=== PATIENT | female | born 1950 | race Asian ===

== ENCOUNTER 2025-03-15 22:05 | Inpatient (IN) | payer OTHER, SELFPAY ==
[2025-03-15] VITALS (14 sets, daily range): BP systolic 69–152; BP diastolic 41–74; BMI 23.5
[2025-03-15] MEDS: NSS 1000 IV ×2 (17:51→19:49)
[2025-03-15 18:00] LABS: % Basophils 0.8 % (0-2); % Immature Granulocytes 0.2 % (0-0.5); % Lymphocytes 34.7 % (20.5-51.1); % Monocytes 9.3 % (1.7-9.3); Absolute Eosinophils 0.2 10^3/uL (0-0.7); Absolute Lymphocytes 1.8 10^3/uL (1.2-3.4); Absolute Monocytes 0.5 10^3/uL (0.1-0.6); Absolute Neutrophils 2.7 10^3/uL (1.4-6.5); Hematocrit 31.7 % (37.0-47.0); Hemoglobin 10.3 g/dL (12.0-16.0); Mean Corp Hgb Conc. 32.5 g/dL (33.0-37.0); Mean Corpuscular Hgb 27.9 pg (27.0-31.0); Mean Corpuscular Volume 85.9 fL (81.0-99.0); Mean Platelet Volume 11.2 fL (7.4-10.4); Nucleated Red Blood Cells % 0 %; Platelet Count 211 10^3/uL (130-400); Red Blood Cell Count 3.69 10^6/uL (4.20-5.40); Red Cell Dist. Width 13.8 % (11.5-14.5); White Blood Cell Count 5.3 10^3/uL (4.8-10.8)
[2025-03-15 18:06] LABS: INR 0.96; PT 13.1 Sec (11.4-14.6)
[2025-03-15 18:12] LABS: ALT (SGPT) 41 U/L (0-35); AST (SGOT) 31 U/L (14-36); Albumin 4.3 g/dl (3.5-5.0); Alkaline Phosphatase 71 U/L (38-126); Blood Urea Nitrogen 14 mg/dl (7-17); Calcium 9.5 mg/dl (8.4-10.2); Carbon Dioxide 18 mmol/L (22-30); Chloride 101 mmol/L (98-107); Estimated Creatinine Clearance 51 ml/min; Glucose 286 mg/dl (70-99); Potassium 3.8 mmol/L (3.5-5.1); Sodium 131 mmol/L (135-145); Total Bilirubin 0.6 mg/dl (0.2-1.3); Total Protein 6.9 g/dl (6.3-8.2); eGFR > 60.00
--- NOTE | 2025-03-15 18:19 | ED.GENMED ---
History of Present Illness
General
Chief Complaint: Rectal Bleeding
Time Seen by Provider: 03/15/25 17:48
History of Present Illness
History of Present Illness:
74-year-old female with history of diabetes presenting to the emergency department for blood per rectum. Patient reports that she was at work, works close by and noticed blood in her stool. She reports that the stool was very watery with mixed in.
Denies ever having this in the past. Denies any abdominal discomfort. She is not on any blood thinners. Denies chest pain or difficulty breathing. Reports last colonoscopy was about 5 years ago. Denies additional acute medical complaints
Past History
Past History
ED Past Medical History: HTN, NIDDM (Borderline diabetes, diet controlled) and Hypothyroidism
ED Past Surgical History: None
Social History
Tobacco: Non-smoker
Alcohol: None
Living: with family
Employment: Employed
Family History
Family History: Hypertension; Negative Diabetes
Phy Exam
Physical Exam
Physical Exam:
General: Well-appearing, no clinical signs of dehydration, nontoxic and in no acute distress
HEENT: protecting airway
Neck: appears supple
CV: Normal heart rate, regular rhythm
Resp: No accessory muscle use, no increased work of breathing, lungs clear to auscultation bilaterally
Abd: Soft and non-distended, no tenderness to palpation, normal bowel sounds
Extremities: No deformities, no swelling, no erythema
Neuro: alert, no focal neurologic deficit
: deferred
Rectal: deferred
Psych: Normal affect
Skin: Intact
Course
Orders/Labs/Results
Orders:
Orders
03/15/25 17:48
Type And Crossmatch [Type+Screen] Urgent
Complete Blood Count/With Diff Urgent
Comprehensive Metabolic Panel Urgent
Prothrombin Time Urgent
0.9% Sodium Chloride 1000 ml [Nss] 1,000 ml IV BOLUS
03/15/25 18:06
C DIFF [C difficile Antigen & Toxins] Urgent
GLENYS Source: Feces/Stool
Specimen Description:
Date Specimen was Collected: 03/15/25
Time Specimen was Collected: 18:05
Stool Culture Urgent
GLENYS Source: Feces/Stool
Specimen Description:
Date Specimen was Collected: 03/15/25
Time Specimen was Collected: 18:05
03/15/25 18:58
CT Angio Abd/Pelvis w/wo IV [CT Abd/pelvis Angio W/wo Iv] Urgent
Comment:
Reason For Exam: GI bleeding, hypotension
03/15/25 19:17
0.9% Sodium Chloride 1000 ml [Nss] 1,000 ml IV BOLUS
Abnormal Lab Results
03/15/25
17:48
RBC 3.69 L 10^6/uL
(4.20-5.40)
Hgb 10.3 L g/dL
(12.0-16.0)
Hct 31.7 L %
(37.0-47.0)
MCHC 32.5 L g/dL
(33.0-37.0)
MPV 11.2 H fL
(7.4-10.4)
Sodium 131 L mmol/L
(135-145)
Carbon Dioxide 18 L mmol/L
(22-30)
Glucose 286 H mg/dl
(70-99)
ALT 41 H U/L
(0-35)
03/15/25 17:48
03/15/25 17:48
Vital Signs
Initial and Last Documented VS:
Initial Vital Signs
Resp BP
20 69/44
03/15/25 17:27 03/15/25 17:27
Last Documented Vital Signs
Pulse Resp BP Pulse Ox
85 19 109/45 98
03/15/25 19:30 03/15/25 19:30 03/15/25 19:30 03/15/25 19:00
MDM/Problems Addressed
MDM/Problems Addressed:
74-year-old female presenting to the emergency department for bright red blood per rectum. Vital signs on arrival are significant for hypotension, however resolved once back into the examination room.
On exam patient resting comfortably, no acute distress. Given improvement of blood pressure and unremarkable examination, lower suspicion for significant GI hemorrhage. No symptoms started acutely today. Patient is not on any blood thinners.
Notes that her stool has been very liquidy, possible infectious diarrhea. Will plan for laboratory analysis and send stool cultures. Will start patient IV fluids and reassess.
19:00- Patient did give a stool sample, olivia blood. Blood pressure dropped while having bowel movement. For this reason we will obtain CT imaging
20:10 -called by radiology, patient found to have very brisk bleeding from right side of the colon. Will talk to interventional radiology. Family updated as well as patient.
22:40 -IR coming in for procedure. Plan for admission
*Critical Care Note
Total Time (30-74mins, 75-104mins- exclusive of procedures): 40
comment:
The high probability of a clinically significant, sudden or life threatening deterioration of the gastrointestinal system(s) required my full and direct attention, intervention and personal management. The aggregate critical care time was 40
minutes. This time is in addition to time spent performing reported procedures but includes the following:
[x] Data Review and interpretation
[x] Patient assessment and monitoring of vital signs
[x] Documentation
[x] Medication orders and management
ED Attending Note
-
Portions of this chart may have been created with voice recognition software.� Occasional wrong word or��sound alike� substitutions may have occurred due to the inherent limitations of voice recognition software.
Discharge Plan
Departure
Patient Disposition: Admit
Date of Disposition: 03/15/25
Time of Disposition: 20:42
Presentation/result/management discussed w/ accepting MD/DO: Hospitalist
Patient with high blood pressure during this ER visit?: No
Condition: Critical
Discharge Problem:
GI bleed
Prescriptions:
No Action
levothyroxine 88 MCG tablet
88 mcg PO DAILY
simvastatin 20 MG tablet
20 mg PO HS
metformin 1,000 MG tablet
1,000 mg PO BID
Patient Comments:
01/20/19 ss; pt reports she is prescribed 1000mg bid, but has been taking 500mg bid since August due to GI issues. PCP is aware. She does take 1000mg when she can tolerate.
pantoprazole 40 MG tablet,delayed release (DR/EC)
40 mg PO DAILY Qty: 30 0RF
ondansetron 4 MG tablet,disintegrating
4 mg PO TIDPRN PRN (Reason: nausea) Qty: 12 0RF
Referrals:
Patel Gomez MD [Family Provider, Family Practice]
Interventions
Interventions:
*Risk Screen - Suicide Last Done: 03/15/25 17:27
*General Assessment Last Done: 03/15/25 17:27
*Neglect/Abuse Screening Last Done: 03/15/25 17:53
*ED- Fall Risk Assessment Last Done: 03/15/25 17:53
*ED COVID-19 Vaccine History Last Done: 03/15/25 17:53
QT-Qguygn-Apbxxyhetx Assessment Last Done: 03/15/25 17:53
ED- Cardiac Assessment Last Done: 03/15/25 17:53
ED- Pulmonary Assessment Last Done: 03/15/25 17:56
Discharge Date and Time
Print Language: SETSWANA
--- NOTE | 2025-03-15 21:52 | HPS.HSE ---
Family Physician
-
Family Physician: Patel Gomez
Chief Complaint
-
Rectal Bleeding
History of Present Illness
Patient is a 74y F with PMH significant for DM-II and hypothyroidism who presents to ED complaining of rectal bleeding. Patient states that she was at work today when she had urge to move her bowels. When she wiped, she noted bright red blood
on the toilet paper. She noted normal appearing stool in the toilet surrounded by bright red blood. She returned to work but a short time later again had the urge to move her bowels. Again she noted a significant amount of bright red blood in the
toilet. At this time she presented to the ED for further evaluation.
She felt somewhat lightheaded on initial arrival to the ED. She states that she felt better with IVFs.
Patient denies any abdominal pain or rectal pain. No N/V.
She denies any prior h/o GI bleeding episodes.
She had a colonoscopy in 2019 and is scheduled for a follow-up this May. (Stephen).
Medical History
Past Medical History
Past Medical History: Reports Other
Additional Past Medical History:
DM-II
Hypertension
Hypothyroidism
Past Surgical History: Reports Other
Additional Past Surgical History:
Cholecystectomy
ERCP / Sphincterotomy
RAVIN / BSO
Social History
Tobacco: Non-smoker
Alcohol: None
Drug: None
Family History
Family History: Not pertinent
Allergies / Home Medications
Allergies reflects when Allergies were last updated in [employer]
Home Medications with original date entered in [employer]
Allergy/Medication List:
Allergies
Allergy/AdvReac Type Severity Reaction Status Date / Time
aspirin Allergy tinnitus Verified 03/15/25 17:26
povidone-iodine (From Allergy Rash Verified 03/15/25 17:26
Betadine)
soap (From Betadine) Allergy Rash Verified 03/15/25 17:26
Sulfa (Sulfonamide Allergy Hives;lips Verified 03/15/25 17:26
Antibiotics) thicken
flu vaccinne Allergy Anaphylaxis Uncoded 03/15/25 17:26
Home Medications
levothyroxine 88 mcg tablet 88 mcg PO DAILY 07/13/18
metformin 1,000 mg tablet 1,000 mg PO BID 01/20/19
simvastatin 20 mg tablet 20 mg PO HS 01/20/19
pantoprazole 40 mg tablet,delayed release 40 mg PO DAILY #30 tabs 01/27/19
ondansetron 4 mg disintegrating tablet 4 mg PO TIDPRN PRN nausea #12 tabs 02/26/20
Review of Systems
-
History Source: Patient
A 12 point ROS was completed and negative except as noted: Yes
Constitutional: Reports Fatigue; Denies Fever or Chills
Respiratory: Denies Cough or Trouble Breathing
Cardiac: Denies Chest Pain or Palpitations
Abdomen/GI: Reports Bloody Stools; Denies Abdominal Pain, Nausea, Vomiting or Diarrhea
: Denies Dysuria or Frequency
Musculoskeletal: Denies Joint Pain or Edema
Neurological: Reports Dizzy; Denies Headache
Psych: Denies Depression or Anxiety
Physical Exam
Vital Signs
Vital Signs
Temp Pulse Resp BP Pulse Ox
98.7 F 102 20 132/57 97
03/15/25 21:33 03/15/25 21:33 03/15/25 21:33 03/15/25 21:33 03/15/25 21:33
Physical Exam
General: Other (74y F in no distress.)
HEENT: Moist mucous membranes and PERRLA
Respiratory: Clear; No Wheezes, Rales or Rhonchi
Cardiac: S1/S2 and Regular Rhythm; No Murmur
GI: Soft, Non Tender, Non Distended and Normal Bowel Sounds
Musculoskeletal: No Clubbing, No Cyanosis and No Edema
Laboratory Results
-
03/15/25 17:48
03/15/25 17:48
Laboratory Results
PT 13.1 Sec (11.4-14.6) 03/15/25 17:48
INR 0.96 03/15/25 17:48
Total Bilirubin 0.6 mg/dl (0.2-1.3) 03/15/25 17:48
AST 31 U/L (14-36) 03/15/25 17:48
ALT 41 U/L (0-35) H 03/15/25 17:48
Alkaline Phosphatase 71 U/L (38-126) 03/15/25 17:48
Impression/Plan
-
A/P: Patient is a 74y F with PMH significant for hypertension and DM-II who presents to ED complaining of BRBPR.
Lower GI Bleeding
Acute Blood Loss Anemia secondary to the above
- Patient presented wth BRBPR. CT done in the ED showed brisk bleeding from the R colon.
- Patient to IR emergently for angio +/- embolization.
- Will admit to ICU post-procedure.
- Follow serial H&H and transfuse if needed (consent in chart).
- GI evaluation for additional recommendations / work up.
- NPO, IVF support, etc.
- Follow for any new symptoms / recurrent bleeding / etc.
Benign Hypertension
- Hold usual HCTZ for now.
DM-II
- Stable. Hold PO medications.
- Follow glucose and cover with SSI as needed.
Hypothyroidism
- Stable. Resume T4 supplementation when OK for PO intake.
DVT Prophylaxis: SCDs
Code Status: Full
--- NOTE | 2025-03-15 23:33 | W.PN.UPDATE ---
Update Note
Progress Note Update
Procedure: SMA arteriogram and subselective arteriogram of the ileocolic artery
- Initial images were unremarkable however a final run from microcatheter in the distal right ileocolic artery showed active focus of extravasation to correspond to CTA from earlier
- Microcatheter advanced into terminal branch distal to suspected bleeding source and coil embolization performed with single 2mm x 4 cm coil. Additional images showed absence of further bleeding with slowed flow within the vessel. No additional
coils felt necessary.
- VSS
- I would suspect she will continue to pass bloody stools overnight given the volume of fluid in colon on CTA
- R leg flat for 3 hrs. Family updated.
[2025-03-16] VITALS (65 sets, daily range): BP systolic 72–164; BP diastolic 36–93; BMI 24.1
[2025-03-16 00:09] LABS: Glucose - Point of Care 182 mg/dl (70-99)
[2025-03-16] MEDS: LR 1000 IV ×3 (00:21→07:42)
[2025-03-16] MEDS: NOVOLOG FLEXPEN 2 UNITS SC (00:54)
--- NOTE | 2025-03-16 01:06 | PTCARENOTE ---
Transferred patient from IR to ICU. Patient AAOx3, drowsy, following commands, denying pain, arouses to verbal stimuli. NS 80s, BP 70s/40s. FURNACE COMBINATION ANALYST notified, 1 L LR bolus given, BP 100s/50s. Normothermic, weak pedal pulses b/l. 99% on room air, lung
sounds clear, diminished in the bases. Abdomen soft, round, nontender, hyperactive BS. Bloody liquid stool. Lopez in place draining clear yellow urine. Right femoral site CDI, b/l LE warm with palpable pulses. Patient informed to keep leg straight
and strict bedrest, verbalized understanding. Blood sugar 182, covered with 2 units of insulin. Daughter and son at bedside updated, questions answered. CHG bath done, labs sent. Call jasso within reach. PIVs patent, WNL. LR ongoing per order.
[2025-03-16 01:27] LABS: Hematocrit 14.1 % (37.0-47.0); Hemoglobin 4.8 g/dL (12.0-16.0)
--- NOTE | 2025-03-16 02:13 | PTCARENOTE ---
Hgb 4.8, first unit of blood transfusing. Otherwise patient assessment unchanged from previous, RN at bedside.
--- NOTE | 2025-03-16 05:42 | PTCARENOTE ---
Second unit infusing, large bloody BM, cleaned up. Labs sent. Call jasso within reach.
[2025-03-16 05:44] LABS: INR 1.12; PT 14.7 Sec (11.4-14.6)
[2025-03-16 05:45] LABS: APTT 30.5 Sec (23.4-35.0)
[2025-03-16 06:05] LABS: Blood Urea Nitrogen 11 mg/dl (7-17); Calcium 7.6 mg/dl (8.4-10.2); Carbon Dioxide 24 mmol/L (22-30); Chloride 111 mmol/L (98-107); Estimated Creatinine Clearance 68 ml/min; Glucose 145 mg/dl (70-99); Magnesium 1.5 mg/dl (1.6-2.3); Phosphorus 3.1 mg/dl (2.5-4.5); Potassium 3.7 mmol/L (3.5-5.1); Sodium 135 mmol/L (135-145); eGFR > 60.00
--- NOTE | 2025-03-16 07:10 | CON.INTV ---
Addendum entered and electronically signed by Jessie Dumont MD 03/16/25 13:01:
Patient hemodynamically stable, no further hematochezia, hemoglobin stable. Saturating well on room air, not needing any pressors.
- Patient can be transferred out of ICU
- Structural Iron Worker service will sign off, please call as needed
Original Note:
Consultation
Consultation Request
Date/Time Consultation Requested: 03/16/2025
Date/Time Consultation Performed: 03/16/2025
Requesting Provider: Jaya Orosco
Performing Provider: Jessie Dumont
Reason for Consultation: Lower GI Bleed
Medical History
-
Chief Complaint: Rectal Bleeding
History of Present Illness:
Patient is a 74-year-old female with history of diabetes who presented to the emergency room with rectal bleeding. Patient reports some tenesmus followed by bright red blood on the toilet paper. She continued to have multiple bowel movements which
prompted visit to the emergency room. She reports feeling lightheaded initially. She responded well to IV fluids. No reported abdominal or rectal pain. No prior history of similar episodes. A CT abdomen pelvis was performed in the emergency
room which was positive for active GI bleeding in the right colonic region. Patient subsequently was evaluated by IR for further intervention. Patient had significant drop in hemoglobin, and was admitted to the ICU for close monitoring.
Structural Iron Worker consult was requested for further input.
Past Medical History
Past Medical History: Reports Other
Additional Past Medical History:
DM-II
Hypertension
Hypothyroidism
Past Surgical History: Reports Other
Additional Past Surgical History:
Cholecystectomy
ERCP / Sphincterotomy
RAVIN / BSO
Social History
Tobacco: Non-smoker
Alcohol: None
Drug: None
Family History
Family History: Not pertinent
Allergies / Home Medications
Allergies
Allergy/AdvReac Type Severity Reaction Status Date / Time
aspirin Allergy tinnitus Verified 03/15/25 17:26
povidone-iodine (From Allergy Rash Verified 03/15/25 17:26
Betadine)
soap (From Betadine) Allergy Rash Verified 03/15/25 17:26
Sulfa (Sulfonamide Allergy Hives;lips Verified 03/15/25 17:26
Antibiotics) thicken
flu vaccinne Allergy Anaphylaxis Uncoded 03/15/25 17:26
Home Medications
�Medication �Instructions �Recorded �Confirmed �Last Taken �Type
levothyroxine 88 mcg tablet 88 mcg PO DAILY 07/13/18 01/25/19 Unknown History
metformin 1,000 mg tablet 1,000 mg PO BID 01/20/19 01/25/19 Unknown History
simvastatin 20 mg tablet 20 mg PO HS 01/20/19 01/25/19 Unknown History
pantoprazole 40 mg tablet,delayed 40 mg PO DAILY #30 tabs 01/27/19 Unknown Rx
release
ondansetron 4 mg disintegrating 4 mg PO TIDPRN PRN nausea #12 tabs 02/26/20 Unknown Rx
tablet
Review of Systems
-
Hematologic/Lymphatic: Other (All 14 systems reviewed and negative except as stated above in the history of present illness.)
Vitals / Labs / Diagnostic Testing
Vital Signs
Temp Pulse Resp BP Pulse Ox
98.2 F 71 12 108/55 100
03/16/25 05:47 03/16/25 06:00 03/16/25 06:00 03/16/25 06:00 03/16/25 05:30
Laboratory Results
03/15/25 03/16/25
17:48 05:22
PT 13.1 14.7 H
INR 0.96 1.12
APTT 30.5
Diagnostic Testing:
Physical Exam
-
HEENT: Normocephalic and Other (Pale conjunctiva)
Cardiovascular: S1/S2
Respiratory: Clear and Non-Labored Respirations
GI: Soft
Neurology: Awake, Alert and Oriented
Skin: Warm
General: Comfortable
Assessment
-
#1. Acute lower GI bleed.
- CT abdomen pelvis positive for brisk active bleeding in right colon
- S/p IR guided emergent angiography followed by coil embolization
- Significant drop in hemoglobin noted from [address] to 4, s/p packed RBC with appropriate improvement, no further episodes of hematochezia
- Hold all antihypertensive medications
- Avoid antiplatelets and anticoagulants
- Continue serial H&H
- GI consult. Discussed with GI service, patient will need colonoscopy in the near future. Depending upon clinical course might need inpatient colonoscopy.
Other medical diagnoses:
- Diabetes mellitus
- History of hypertension
- Hypothyroidism
DVT prophylaxis with SCDs.
Critical Care time 65 mins -- The patient is admitted for acute critical illness for the treatment of vital organ failure and/or prevention of further life-threatening conditions. Total care includes time spent in review of history, physical exam,
medications, hemodynamic/ventilator parameters, laboratory data, imaging and discussion with house staff, pharmacy, respiratory therapy, structural iron worker, and nursing.
Data:
[facility] GI Bleed 03/2025: Active bleeding in the right colon.
[2025-03-16] MEDS: NOVOLOG FLEXPEN-LOW RESISTANCE SC ×2 (07:30→12:20)
--- NOTE | 2025-03-16 07:43 | CON.GI ---
Addendum entered and electronically signed by Pallavi Baires MD 03/16/25 11:57:
I saw and examined the patient.
The MANUFACTURING CHIEF ENGINEER's note was reviewed and I agree with the note.
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 [facility] and her daughter is also currently at the bedside with past medical history as listed below who does take
meloxicam as outpatient who presented yesterday with multiple episodes of painless rectal bleeding and hemoglobin dropped to 4.8 from her baseline of 10.3 was having dizziness. CTA showed active bleeding in the right colon she subsequently had an
IR embolization and has not had any further bleeding since and hemoglobin stabilized status post 2 units of packed red blood cells. Her last colonoscopy was in [address] [facility] and she does have a follow-up colonoscopy scheduled in May through
[facility]. She does have chronic constipation and she states that she started taking Colace a couple months ago and has been having more regular bowel movements with this also with increased dietary fiber intake.
Assessment and plan painless rectal bleeding source in the right colon most likely diverticulosis. She does have prior history of colon polyps and diverticulosis and is due for a follow-up colonoscopy in May. She is status post IR embolization
and bleeding seems to have resolved and hemoglobin stable after 2 units of packed red blood cells. Will watch closely and if she does have further bleeding will need colonoscopy but if she has another massive bleed may need surgery. Avoid NSAIDs
told her to avoid meloxicam after DC
Original Note:
Consultation
-
Date/Time Consultation Requested: 03/15/25 7430
Date/Time Consultation Performed: 03/16/25 5720
Requesting Provider: Jaya Orosco DO
Performing Provider: CHELSEA Schaffer, Pallavi Baires MD
Reason for Consultation: GI bleed
Medical History
Chief Complaint / HPI
History of Present Illness:
Pt is a 74yo with hx precancerous colon polyps, NIDDM, hypothyroidism, HTN, prior rosibel/ERCP with sphincterotomy and stone removal , RAVIN/BSO with onset of rectal bleeding while at work with several large volume bloody stools before 5 pm on 03/15. On
admission noted with drop in hbg 10.3 to 4.8 with some visual changes and lightheadedness that have now improved. CTA was completed on admission with concern for active bleeding in right colon. Pt proceeded to IR angio final run in distal
ileocolonic artery with active focus with coil embolization completed. Hx colonoscopy 2018 and due follow up this May.
At this time patient denies any history of bleeding in past. She admits to hx stools every several days but recent change in diet with daily stools. She denies any chronic GI issue with odynophagia, dysphagia, GERD, nausea, vomiting,
abdominal pain, diarhea or black stools. No anticoagulation or NSAID use.
Past Medical History
Past Medical History: HTN, Hypothyroidism, NIDDM and Other (precancerous colon polyps)
Past Surgical History: Cholecystectomy, Gynecological (RAIVN/BSO) and Other (prior ERCP for choledocholithiasis )
Social History
Tobacco: Non-Smoker
Alcohol: Occasional (rare 1 drink per year )
Drug: None
Living: Alone
Employment: Employed
Family History
Family History: Other (aunt with colon CA)
Allergies / Home Medications
Allergy/AdvReac Type Severity Reaction Status Date / Time
aspirin Allergy tinnitus Verified 03/15/25 17:26
povidone-iodine (From Allergy Rash Verified 03/15/25 17:26
Betadine)
soap (From Betadine) Allergy Rash Verified 03/15/25 17:26
Sulfa (Sulfonamide Allergy Hives;lips Verified 03/15/25 17:26
Antibiotics) thicken
flu vaccinne Allergy Anaphylaxis Uncoded 03/15/25 17:26
�Medication �Instructions �Recorded
levothyroxine 88 mcg tablet 88 mcg PO DAILY 07/13/18
metformin 1,000 mg tablet 1,000 mg PO BID 01/20/19
simvastatin 20 mg tablet 20 mg PO HS 01/20/19
pantoprazole 40 mg tablet,delayed 40 mg PO DAILY #30 tabs 01/27/19
release
ondansetron 4 mg disintegrating 4 mg PO TIDPRN PRN nausea #12 tabs 02/26/20
tablet
Review of Systems
-
History Source: Patient
Constitutional: Reports No Symptoms
EENT: Reports No Symptoms
Respiratory: Reports No Symptoms
Cardiac: Reports No Symptoms
Abdomen/GI: Reports Bloody Stools
: Reports No Symptoms
Musculoskeletal: Reports No Symptoms
Skin: Reports No Symptoms
Neurological: Reports Dizzy (after admission now improved )
Endocrine: Reports No Symptoms
Hematologic/Lymphatic: Reports Bleeding
Vital Signs
Temp Pulse Resp BP Pulse Ox
98.4 F 70 13 112/58 100
03/16/25 07:25 03/16/25 07:25 03/16/25 07:25 03/16/25 07:25 03/16/25 07:25
Physical Exam
Exam
General: Well Developed, Well Nourished and No Apparent Distress
HEENT: Normocephalic and Anicteric
Respiratory: Clear
Cardiac: Regular Rhythm
GI: Soft, Non Tender and Non Distended
Musculoskeletal: No Clubbing and No Cyanosis
Skin: Warm and Dry
Neuro: Awake, Alert and AO x 3
Psych: Calm
Results
WBC 5.3 10^3/uL (4.8-10.8) 03/15/25 17:48
Hgb 4.8 g/dL (12.0-16.0) L* D 03/16/25 00:59
Hct 14.1 % (37.0-47.0) L* 03/16/25 00:59
MCV 85.9 fL (81.0-99.0) 03/15/25 17:48
Plt Count 211 10^3/uL (130-400) 03/15/25 17:48
Absolute Neuts (auto) 2.7 10^3/uL (1.4-6.5) 03/15/25 17:48
PT 14.7 Sec (11.4-14.6) H 03/16/25 05:22
INR 1.12 03/16/25 05:22
APTT 30.5 Sec (23.4-35.0) 03/16/25 05:22
Sodium 135 mmol/L (135-145) 03/16/25 05:22
Potassium 3.7 mmol/L (3.5-5.1) 03/16/25 05:22
Chloride 111 mmol/L (98-107) H 03/16/25 05:22
Carbon Dioxide 24 mmol/L (22-30) 03/16/25 05:22
BUN 11 mg/dl (7-17) 03/16/25 05:22
Creatinine 0.5 mg/dL (0.6-1.0) L 03/16/25 05:22
Calcium 7.6 mg/dl (8.4-10.2) L D 03/16/25 05:22
Total Bilirubin 0.6 mg/dl (0.2-1.3) 03/15/25 17:48
AST 31 U/L (14-36) 03/15/25 17:48
ALT 41 U/L (0-35) H 03/15/25 17:48
Alkaline Phosphatase 71 U/L (38-126) 03/15/25 17:48
Diagnostic Image Results:
03/15/25 CT Abd/pelvis Angio W/wo Iv
Active bleeding in the right colon.
Prior GI Procedures:
EGD: [facility] 01/2019 - Normal esophagus.
- Normal stomach.
- Normal examined duodenum.
- One non-bleeding duodenal ulcer with no stigmata of
bleeding.
- No specimens collected.
ERCP: 2019- [facility] choledocholithiasis with removal and sphincterotomy
Colonoscopy: Hx colonoscopy 2019 [facility] with colon polyps-- due follow up this May.
Assessment / Plan
-
Pt is a 74yo with hx precancerous colon polyps, NIDDM, hypothyroidism, HTN, prior rosibel/ERCP with sphincterotomy and stone removal , RAVIN/BSO with onset of rectal bleeding while at work with several large volume bloody stools before 5 pm on 03/15. On
admission noted with drop in hbg 10.3 to 4.8 with some visual changes and lightheadedness that have now improved. CTA was completed on admission with concern for active bleeding in right colon. Pt proceeded to IR angio final run in distal
ileocolonic artery with active focus with coil embolization completed. Hx colonoscopy 2018 and due follow up this May.
-lower GI bleed - likely diverticular s/p IR coil embolization 03/15
-symptomatic anemia secondary to acute blood loss wtih lower GI bleed
-hx colon polyps
other med problems:
-NIDDM
-hypothyroidism
-HTN
-prior rosibel/ERCP with stone removal
-RAVIN/BSO
-aunt with hx colon CA
PLAN:
etiology of bleeding likely diverticular vs other
s/p coil embolization by IR 03/15
per notes anticipate further bloody stool with large volume blood retained in colon
s/p 2 units PRBC's transfused- for repeat hbg now to see if further transfusion needed
ok for sips clear and ice chips
if continued bleeding consider colonoscopy vs follow up OP after bleeding improved as due follow up with hx colon polyps
-
-
Thank you for consultation and allowing me to participate in the patient's care. Please call the operational meteorologist GI physician during the after hours with any questions or concerns.
--- NOTE | 2025-03-16 07:50 | PTCARENOTE ---
Assumed care of pt at 0715 following shift report. Pt asleep and woken to name for assessment and care. Pt denies c/o pain or discomfort. Remains NPO per order. On RA w/ Pox 98%. No SOB. Lopez patent and draining clear pale yellow urine. IVF of LR
infusing at 150ml/hr. 2/2 ordered unit PRBC finished infusing w/o s/s reaction. Physical assessment completed as documented. Call louisa w/in pt reach and safe environment maintained.
[2025-03-16 08:13] LABS: INR 1.02; PT 13.9 Sec (11.4-14.6)
[2025-03-16 08:14] LABS: APTT 28.2 Sec (23.4-35.0)
[2025-03-16 08:18] LABS: Hematocrit 23.9 % (37.0-47.0); Hemoglobin 8.1 g/dL (12.0-16.0)
[2025-03-16] MEDS: PROTONIX IV 40 MG IV (08:34)
[2025-03-16 08:59] LABS: Blood Urea Nitrogen 10 mg/dl (7-17); Calcium 7.9 mg/dl (8.4-10.2); Carbon Dioxide 24 mmol/L (22-30); Chloride 112 mmol/L (98-107); Estimated Creatinine Clearance 68 ml/min; Glucose 125 mg/dl (70-99); Magnesium 1.6 mg/dl (1.6-2.3); Potassium 4.2 mmol/L (3.5-5.1); Sodium 137 mmol/L (135-145); eGFR > 60.00
[2025-03-16 09:19] LABS: Glycohemoglobin (HgbA1c) 6.6 % (4.0-5.6)
--- NOTE | 2025-03-16 11:10 | PTCARENOTE ---
Pt passed large maroon gelatinous type stool w/ clots around 0845 this AM. Pericare provided. GI CNRP and MD in to evaluate pt and aware of maroon stool w/ clots. Pt to begin CL diet- pt updated on plan of care and PO fluids provided on request. IVF
d/c'ed per order. Pt's sister visiting at bedside. No
[2025-03-16 11:54] LABS: Glucose - Point of Care 111 mg/dl (70-99)
[2025-03-16] MEDS: MAGNESIUM SULFATE 50 IV (12:16)
--- NOTE | 2025-03-16 12:20 | W.PN.GENERIC ---
Assessment / Plan
-
This is a pleasant 74 yo female who was admitted after GI bleed. She had an arteriogram yesterday and was found to have an ileocecal bleed that was embolized in IR. She is feeling better
Continue to trend H&H
Transfuse as needed
Physician Progress Note
Subjective
This is a 74y F with PMH significant for DM-II, HTN and hypothyroidism who presened to the ER complaining of rectal bleeding. She reports she was at work yesterday when she had urge to move her bowels she subsequently had 2 bloody bowel movements
and went to the ER. Initially she felt lightheaded but felt better with IVFs. She had a CTA which demonstrated active extravasation in the right colon. She came to IR where she had an arteriogram and was found to have an ileocecal bleed that was
embolized. She has had 2 bloody bowel movements since but is feeling better. She denies any abdominal pain or rectal pain, N/V. She denies any prior h/o GI bleeding episodes. She had a colonoscopy in 2019 and is scheduled for a follow-up this
May. ([facility]).
Past Medical History
DM-II
Hypertension
Hypothyroidism
Past Surgical History:
Cholecystectomy
ERCP / Sphincterotomy
RAVIN / BSO
Social History
Tobacco: Non-smoker
Allergies
Allergy/AdvReac Type Severity Reaction Status Date / Time
aspirin Allergy tinnitus Verified 03/15/25 17:26
povidone-iodine (From Allergy Rash Verified 03/15/25 17:26
Betadine)
soap (From Betadine) Allergy Rash Verified 03/15/25 17:26
Sulfa (Sulfonamide Allergy Hives;lips Verified 03/15/25 17:26
Antibiotics) thicken
flu vaccinne Allergy Anaphylaxis Uncoded 03/15/25 17:26
Home Medications- The patient's current medications were documented and reviewed at the time of this visit, including medication name, dosage, frequency and route of administration
levothyroxine 88 mcg tablet 88 mcg PO DAILY metformin 1,000 mg tablet 1,000 mg PO BID simvastatin 20 mg tablet 20 mg PO HS pantoprazole 40 mg tablet,delayed release 40 mg PO DAILY #30 tabs ondansetron 4 mg disintegrating tablet 4 mg PO TIDPRN
PRN nausea #12 tabs
Objective
Vital Signs
Temp Pulse Resp BP Pulse Ox
98.4 F 74 16 116/58 99
03/16/25 08:00 03/16/25 10:30 03/16/25 10:30 03/16/25 10:30 03/16/25 10:30
Lab Results
03/16/25 07:55
This is a WNWD 74 yo female in [facility]. COlor is good. SKin warma dn dry. Neck supple. HEart regular. Lungs are CTA. Abdomen is soft and nontender with bowel sounds present. Right groin dressing is CDI. Palpable inguinal and pedal pulses
[2025-03-16 12:23] LABS: Hematocrit 21.1 % (37.0-47.0); Hemoglobin 7.3 g/dL (12.0-16.0)
--- NOTE | 2025-03-16 13:16 | CM ---
Initial assessment completed with patient who lives alone in a 2 story home plus basement with 1 step to enter, B/B on 2nd floor with 1/2 bath on 1st. 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 No DME or in-home services. Family is
support system. No service and no HC-POA. PCP is Dr. Patel Gomez and Pharmacy is [facility] on [facility]. Discharge PIC: Home with no needs
--- NOTE | 2025-03-16 13:19 | PTCARENOTE ---
Repeat H/H reported to Dr Dumont. Order to transfer to M/S received. Lopez catheter removed and pt OOB to chair w/ supervision. Tolerated well. Gait steady. Denies c/o dizziness w/ increase activity. Waiting on CL lunch tray to arrive. No additional
changes from previous assessment findings.
--- NOTE | 2025-03-16 14:27 | W.PN.HOSP.TC ---
Today's Communication/Plan
-
Assessment / Plan
Assessment / Plan
General: No Apparent Distress, Comfortable and Conversant
HEENT: NormoCephalic, Moist mucous membranes, Atraumatic
Respiratory: Clear and Non Labored Respirations
Cardiac: S1/S2 and Regular Rhythm; No Rub or Gallop
GI: Soft, Non Tender, Non Distended and Normal Bowel Sounds
Musculoskeletal: No Edema, no deformity
Skin: Warm and dry
: Lopez in place draining clear yellow urine
Neuro: Awake, Alert, Nonfocal/grossly intact
Psych: Calm and Intact Judgment/Insight
Ms. Wu is a 74-year-old female with a medical history of ryl-mosxtue-oetqjkufp diabetes mellitus and hypothyroidism who presented with dizziness and visual changes. She was at work when she felt the need to have a bowel movement, after which she
noted bright red blood in the toilet and on the paper. She had a second bloody bowel movement a short time later after which she presented to the emergency department for further evaluation. She denies any abdominal pain, nausea or vomiting, or
similar prior episodes. Last colonoscopy was in 2018 with a follow-up scheduled for this May. Her hemoglobin dropped to 4.8 at which time she was transfused [address] angiography showed active bleed in the right colon. She was brought
for IR embolization with resolution of bleeding. She remains hemodynamically stable and is being monitored currently in the ICU.
Rectal bleeding:
- Painless, no prior episodes
- Significant drop in hemoglobin from baseline around 10.5-4.8 after 2 large bloody bowel movements
- Now stable after IR embolization of bleeding in right colon, likely a diverticular bleed
-Continue to monitor H&H closely
- Avoid NSAIDs, discontinued home meloxicam
- If recurrent major bleeding may need surgical intervention
NIDDM:
- Holding home metformin while inpatient
- Cover with insulin sliding scale
Hypothyroidism:
- Stable
- Anticipate restarting home Synthroid once diet has been advanced
DVT prophylaxis: SCDs
CODE STATUS: Full code
Total time spent on today's encounter was 35 minutes
Anticipated Discharge: > 48 hours
Subjective/Interval History
-
Date of Service: March 16, 2025
Patient was seen and examined at bedside this morning. Feeling well. Status post transfusion 2 unit PRBCs overnight for painless rectal bleeding with hemoglobin dropped to 4.8. Has since recovered status post IR embolization of likely
diverticular bleed and right colon.
Objective Data
-
Labs:
Laboratory Results
03/16/25 03/16/25 03/16/25
05:22 07:55 12:14
Hgb 8.1 L D 7.3 L
Hct 23.9 L 21.1 L
PT 14.7 H 13.9
INR 1.12 1.02
APTT 30.5 28.2
Sodium 135 137
Potassium 3.7 4.2
Chloride 111 H 112 H
Carbon Dioxide 24 24
BUN 11 10
Creatinine 0.5 L 0.5 L
Glucose 145 H 125 H
Calcium 7.6 L D 7.9 L
Vital Signs:
Vital Signs
Temp Pulse Resp BP Pulse Ox
98.6 F 75 18 114/57 98
03/16/25 12:22 03/16/25 13:00 03/16/25 13:00 03/16/25 13:00 03/16/25 12:50
I&O
03/15/25 03/16/25 03/17/25
06:59 06:59 06:59
Intake Total 2299 / 2449 1210 / 1210
Output Total 1400 / 1400 1500 / 1500
Balance 899 / 1049 -290 / -290
Review of Systems
-
History Source: Patient
All other systems: Reviewed and negative
Physical Exam
-
General: No Apparent Distress
--- NOTE | 2025-03-16 16:34 | PTCARENOTE ---
Pt remains OOB in chair. Tolerating CL diet. To BR w/ supervision to void- no further BM this shift. No new complaints. Pt's daughter and sister gone home for evening.
[2025-03-16 16:44] LABS: Glucose - Point of Care 168 mg/dl (70-99)
[2025-03-16] MEDS: NOVOLOG FLEXPEN-LOW RESISTANCE 1 UNITS SC (16:44)
--- NOTE | 2025-03-16 16:53 | PTCARENOTE ---
Transfer report given to 'Phuong' GLENIS. Pt to transfer to Rm [id number] via w/ personal belongings. No changes in assessment findings or new complaints received prior to transfer.
[2025-03-16 19:51] LABS: Hematocrit 22.5 % (37.0-47.0); Hemoglobin 7.8 g/dL (12.0-16.0)
[2025-03-17 05:21] LABS: Glucose - Point of Care 122 mg/dl (70-99)
[2025-03-17 05:36] VITALS: BMI 23.5
[2025-03-17 06:26] LABS: Hematocrit 22.2 % (37.0-47.0); Hemoglobin 7.6 g/dL (12.0-16.0); Mean Corp Hgb Conc. 34.2 g/dL (33.0-37.0); Mean Corpuscular Hgb 28.6 pg (27.0-31.0); Mean Corpuscular Volume 83.5 fL (81.0-99.0); Mean Platelet Volume 11.4 fL (7.4-10.4); Platelet Count 114 10^3/uL (130-400); Red Blood Cell Count 2.66 10^6/uL (4.20-5.40); Red Cell Dist. Width 14.8 % (11.5-14.5); White Blood Cell Count 2.9 10^3/uL (4.8-10.8)
[2025-03-17] MEDS: NSS (PRESERVATIVE FREE) 10 ML IV (07:26)
[2025-03-17] MEDS: PROTONIX IV 40 MG IV (07:26)
[2025-03-17] MEDS: FLUSH (NSS) 2 FLUSH IV (07:27)
[2025-03-17 07:52] VITALS: BP 114/58
[2025-03-17 08:13] LABS: Glucose - Point of Care 121 mg/dl (70-99)
[2025-03-17] MEDS: NOVOLOG FLEXPEN-LOW RESISTANCE SC ×3 (08:18→17:06)
[2025-03-17 11:59] LABS: Glucose - Point of Care 144 mg/dl (70-99)
--- NOTE | 2025-03-17 13:16 | W.PN.HOSP.TC ---
Today's Communication/Plan
-
Assessment / Plan
Assessment / Plan
General: No Apparent Distress, Comfortable and Conversant
HEENT: NormoCephalic, Moist mucous membranes, Atraumatic
Respiratory: Clear and Non Labored Respirations
Cardiac: S1/S2 and Regular Rhythm; No Rub or Gallop
GI: Soft, Non Tender, Non Distended and Normal Bowel Sounds
Musculoskeletal: No Edema, no deformity
Skin: Warm and dry
: Lopez in place draining clear yellow urine
Neuro: Awake, Alert, Nonfocal/grossly intact
Psych: Calm and Intact Judgment/Insight
Ms. Wu is a 74-year-old female with a medical history of npt-pwqxtoy-ptjcerlai diabetes mellitus and hypothyroidism who presented with dizziness and visual changes. She was at work when she felt the need to have a bowel movement, after which she
noted bright red blood in the toilet and on the paper. She had a second bloody bowel movement a short time later after which she presented to the emergency department for further evaluation. She denies any abdominal pain, nausea or vomiting, or
similar prior episodes. Last colonoscopy was in 2018 with a follow-up scheduled for this May. Her hemoglobin dropped to 4.8 at which time she was transfused [address] angiography showed active bleed in the right colon. She was brought
for IR embolization with resolution of bleeding. She remains hemodynamically stable and is being monitored currently in the ICU.
Rectal bleeding:
- Painless, no prior episodes
- Significant drop in hemoglobin from baseline around 10.5-4.8 after 2 large bloody bowel movements
- Now stable after IR embolization of bleeding in right colon, likely a diverticular bleed
- Hemoglobin remained stable around 7.5, continue to monitor H&H closely
- Avoid NSAIDs, discontinued home meloxicam
- If recurrent major bleeding may need surgical intervention
- Advance diet per GI recommendations
NIDDM:
- Holding home metformin while inpatient
- Cover with insulin sliding scale
Hypothyroidism:
- Stable
- Anticipate restarting home Synthroid once diet has been advanced
DVT prophylaxis: SCDs
CODE STATUS: Full code
Total time spent on today's encounter was 35 minutes
Anticipated Discharge: 24 - 48 hours
Subjective/Interval History
-
Date of Service: March 17, 2025
Patient was seen and examined at bedside this morning. Does not appear to be actively bleeding anymore. Does still have bowel movements containing stool mixed with blood. No further lightheadedness or weakness. Tolerating clear liquid diet.
Objective Data
-
Labs:
Laboratory Results
03/17/25
05:07
WBC 2.9 L
Hgb 7.6 L
Hct 22.2 L
Plt Count 114 L D
Vital Signs:
Vital Signs
Temp Pulse Resp BP Pulse Ox
98.5 F 74 18 114/58 98
03/17/25 07:52 03/17/25 07:52 03/17/25 07:52 03/17/25 07:52 03/17/25 07:52
I&O
03/16/25 03/17/25 03/18/25
06:59 06:59 06:59
Intake Total 2299 / 2449 1450 / 1450
Output Total 1400 / 1400 1500 / 1500
Balance 899 / 1049 -50 / -50
Review of Systems
-
History Source: Patient
All other systems: Reviewed and negative
Physical Exam
-
General: No Apparent Distress
[2025-03-17 15:20] VITALS: BP 151/76
--- NOTE | 2025-03-17 16:13 | W.PN.GI.CBS2 ---
Today's Communication / Plan
-
LRD
monitor HB and for signs of rebleed
Assessment / Plan
-
Pt is a 74yo with hx precancerous colon polyps, NIDDM, hypothyroidism, HTN, prior rosibel/ERCP with sphincterotomy and stone removal , RAVIN/BSO with onset of rectal bleeding while at work with several large volume bloody stools before 5 pm on 03/15. On
admission noted with drop in hbg 10.3 to 4.8 with some visual changes and lightheadedness that have now improved. CTA was completed on admission with concern for active bleeding in right colon. Pt proceeded to IR angio final run in distal
ileocolonic artery with active focus with coil embolization completed. Hx colonoscopy 2018 and due follow up this May.
-lower GI bleed - likely diverticular s/p IR coil embolization 03/15
-symptomatic anemia secondary to acute blood loss wtih lower GI bleed
-hx colon polyps
other med problems:
-NIDDM
-hypothyroidism
-HTN
-prior rosibel/ERCP with stone removal
-RAVIN/BSO
-aunt with hx colon CA
PLAN:
etiology of bleeding likely diverticular
s/p coil embolization by IR 03/15
s/p 2 units PRBC's transfused 03/16 HB stable
Likely the blood in the stool today is old blood since the bleeding was from right colon
If she does have recurrent bleeding consider colonoscopy but if she does have brisk bleeding may need surgery
Will advance to low residue diet
History of colon polyps and has a colonoscopy scheduled in May with her outpatient GI
Chronic constipation continue Colace and use MiraLAX or milk of magnesia as needed
Will sign off and will be available as needed
Subjective
Subjective
Date of Service: March 17, 2025
she had a bowel movement today with some blood in the stool and some dark stool
Hemoglobin remained stable status post 2 units of packed red blood cells on 03/16/2025
Objective
Data Reviewed
Laboratory Data:
Laboratory Results
03/17/25 05:07
03/16/25 07:55
Laboratory Results
PT 13.9 Sec (11.4-14.6) 03/16/25 07:55
INR 1.02 03/16/25 07:55
APTT 28.2 Sec (23.4-35.0) 03/16/25 07:55
Phosphorus 3.0 mg/dl (2.5-4.5) 03/16/25 07:55
Magnesium 1.6 mg/dl (1.6-2.3) 03/16/25 07:55
Total Bilirubin 0.6 mg/dl (0.2-1.3) 03/15/25 17:48
AST 31 U/L (14-36) 03/15/25 17:48
ALT 41 U/L (0-35) H 03/15/25 17:48
Alkaline Phosphatase 71 U/L (38-126) 03/15/25 17:48
Vital Signs and I&O:
Vital Signs
Temp Pulse Resp BP Pulse Ox
97.9 F 90 18 151/76 99
03/17/25 15:20 03/17/25 15:20 03/17/25 15:20 03/17/25 15:20 03/17/25 15:20
I&O
03/16/25 03/17/25 03/18/25
06:59 06:59 06:59
Intake Total 2299 / 2449 1450 / 1450
Output Total 1400 / 1400 1500 / 1500
Balance 899 / 1049 -50 / -50
Physical Exam
Physical Exam
Cardiology: Normal Sinus Rhythm
Pulmonary: Clear
GI: Soft, Non Distended, Non Tender and Normal Bowel Sounds
[2025-03-17 16:37] LABS: Glucose - Point of Care 111 mg/dl (70-99)
[2025-03-17 21:19] LABS: Glucose - Point of Care 138 mg/dl (70-99)
[2025-03-17] MEDS: TYLENOL 650 MG PO (23:31)
[2025-03-17 23:34] VITALS: BP 128/69
[2025-03-18 05:35] VITALS: BMI 22.9
[2025-03-18 05:55] LABS: Hematocrit 23.5 % (37.0-47.0); Hemoglobin 7.9 g/dL (12.0-16.0); Mean Corp Hgb Conc. 33.6 g/dL (33.0-37.0); Mean Corpuscular Hgb 28.3 pg (27.0-31.0); Mean Corpuscular Volume 84.2 fL (81.0-99.0); Mean Platelet Volume 10.8 fL (7.4-10.4); Platelet Count 146 10^3/uL (130-400); Red Blood Cell Count 2.79 10^6/uL (4.20-5.40); Red Cell Dist. Width 14.7 % (11.5-14.5); White Blood Cell Count 3.8 10^3/uL (4.8-10.8)
[2025-03-18 06:14] LABS: Blood Urea Nitrogen 7 mg/dl (7-17); Calcium 8.5 mg/dl (8.4-10.2); Carbon Dioxide 24 mmol/L (22-30); Chloride 111 mmol/L (98-107); Estimated Creatinine Clearance 68 ml/min; Glucose 125 mg/dl (70-99); Potassium 3.9 mmol/L (3.5-5.1); Sodium 140 mmol/L (135-145); eGFR > 60.00
[2025-03-18 07:05] VITALS: BP 124/55
[2025-03-18 08:03] LABS: Glucose - Point of Care 246 mg/dl (70-99)
[2025-03-18 08:10] LABS: % Basophils 0.3 % (0-2); % Immature Granulocytes 0.3 % (0-0.5); % Lymphocytes 36.8 % (20.5-51.1); % Monocytes 8.5 % (1.7-9.3); % Neutrophils 49.1 % (42.2-75.2); Absolute Eosinophils 0.2 10^3/uL (0-0.7); Absolute Lymphocytes 1.4 10^3/uL (1.2-3.4); Absolute Monocytes 0.3 10^3/uL (0.1-0.6); Absolute Neutrophils 1.9 10^3/uL (1.4-6.5); Nucleated Red Blood Cells % 0 %
[2025-03-18] MEDS: NOVOLOG FLEXPEN-LOW RESISTANCE 2 UNITS SC (09:09)
[2025-03-18] MEDS: NSS (PRESERVATIVE FREE) 10 ML IV (09:10)
[2025-03-18] MEDS: FLUSH (NSS) 1 FLUSH IV (09:10)
[2025-03-18] MEDS: PROTONIX IV 40 MG IV (09:10)
[2025-03-18] MEDS: TYLENOL 650 MG PO (10:30)
--- NOTE | 2025-03-18 10:39 | W.DCSUMMARY ---
Discharge Summary
Discharge Data
Date of Admission: 03/15/25
Date of Discharge: 03/18/25
Total time spent discharging patient (in min): 40
-
Pending Results: No
Hospital Course
Ms. Wu is a 74-year-old female with a medical history of [id number] diabetes mellitus and hypothyroidism who presented with dizziness and visual changes. She was at work when she felt the need to have a bowel movement, after which she
noted bright red blood in the toilet and on the paper. She had a second bloody bowel movement a short time later after which she presented to the emergency department for further evaluation. She denied any abdominal pain, nausea or vomiting, or
similar prior episodes. Last colonoscopy was in 2018 with a follow-up scheduled for this May. Her hemoglobin dropped to 4.8 at which time she was transfused [address] angiography showed active bleed in the right colon. She was brought
for IR embolization with resolution of bleeding. She remained hemodynamically stable and was monitored initially in the ICU.
Her hemoglobin stabilized around 7.5 and she was tolerating a p.o. diet. She was able to be downgraded to the general medical floors. She did continue to have bowel movements containing stool mixed with blood, which is likely residual from
suspected diverticular bleed. She does not appear to have any further active bleeding. She should avoid further NSAID use. She has no further dizziness or visual changes. She is able to ambulate without assistance. She does report feeling
generally fatigued which is likely due to her acute blood loss anemia and should continue to improve now that her bleeding has stopped. Her hemoglobin on the day of discharge was 7.9. She will be discharged to home with instructions to follow-up
with her PCP for repeat blood work on Friday to monitor her hemoglobin levels. She was also instructed to go to the nearest emergency department or call 911 if her presenting symptoms return or if she develops recurrent bleeding. She should
continue a gentle bowel regimen in order to avoid constipation.
General: No Apparent Distress, Comfortable and Conversant
HEENT: NormoCephalic, Moist mucous membranes, Atraumatic
Respiratory: Clear and Non Labored Respirations
Cardiac: S1/S2 and Regular Rhythm; No Rub or Gallop
GI: Soft, Non Tender, Non Distended and Normal Bowel Sounds
Musculoskeletal: No Edema, no deformity
Skin: Warm and dry
: No Lopez
Neuro: Awake, Alert, Nonfocal/grossly intact
Psych: Calm and Intact Judgment/Insight
Discharge Plan
-
Patient Disposition: Home (Routine Discharge)
Discharge Diagnosis/Procedures: Lower GI bleed, anemia requiring transfusions
Diet: Low Residue
Activity Restrictions/Additional Instructions:
Ms. Wu is a 74-year-old female with a medical history of [id number]-[id number] diabetes mellitus and hypothyroidism who presented with dizziness and visual changes. She was at work when she felt the need to have a bowel movement, after which she
noted bright red blood in the toilet and on the paper. She had a second bloody bowel movement a short time later after which she presented to the emergency department for further evaluation. She denied any abdominal pain, nausea or vomiting, or
similar prior episodes. Last colonoscopy was in 2018 with a follow-up scheduled for this May. Her hemoglobin dropped to 4.8 at which time she was transfused [address] angiography showed active bleed in the right colon. She was brought
for IR embolization with resolution of bleeding. She remained hemodynamically stable and was monitored initially in the ICU.
Her hemoglobin stabilized around 7.5 and she was tolerating a p.o. diet. She was able to be downgraded to the general medical floors. She did continue to have bowel movements containing stool mixed with blood, which is likely residual from
suspected diverticular bleed. She does not appear to have any further active bleeding. She should avoid further NSAID use. She has no further dizziness or visual changes. She is able to ambulate without assistance. She does report feeling
generally fatigued which is likely due to her acute blood loss anemia and should continue to improve now that her bleeding has stopped. Her hemoglobin on the day of discharge was 7.9. She will be discharged to home with instructions to follow-up
with her PCP for repeat blood work on Friday to monitor her hemoglobin levels. She was also instructed to go to the nearest emergency department or call 911 if her presenting symptoms return or if she develops recurrent bleeding. She should
continue a gentle bowel regimen in order to avoid constipation.
Referrals:
Patel Gomez MD [Family Provider, [facility]]
Rachel German DO [Active, Gastroenterology]
Prescriptions:
Continued
simvastatin 20 MG tablet
20 mg PO HS
metformin 1,000 MG tablet
1,000 mg PO BID
Patient Comments:
01/20/19 ss; pt reports she is prescribed 1000mg bid, but has been taking 500mg bid since August due to GI issues. PCP is aware. She does take 1000mg when she can tolerate.
levothyroxine 75 mcg tablet
75 mcg PO DAILY
Discontinued
meloxicam 15 mg tablet
15 mg PO DAILY
Discharge Orders:
Discharge Patient (As Directed); Ordered 03/18/25
Ordered By: Gallo Toribio
Discharge Date and Time
Print Language: TURKISH
[2025-03-18 11:30] VITALS: BP 128/58
[2025-03-18 12:06] LABS: Glucose - Point of Care 109 mg/dl (70-99)
[2025-03-18] MEDS: NOVOLOG FLEXPEN-LOW RESISTANCE SC (12:10)
--- NOTE | 2025-03-18 12:43 | CM ---
Md entered order for discharge.
Spoke with pt and her dgt Dorinda .
Pt said she is ready for discharge today.
Offered VN she declined need.
Dorinda dgt will drive her home.
PLAN Home no needs
== END 2025-03-18 12:49 | disposition home or self-care (01) | DRG 982 ==
LOC: 4 EAST ACU 22:05
PROVIDERS: Nurse Practitioner Adult Health; Nurse Practitioner Family; Radiology Diagnostic Radiology; ADMITTING PHYSICIAN Hospitalist; ATTENDING PHYSICIAN Internal Medicine; CONSULT PHYSICIAN Internal Medicine; EMERGENCY PHYSICIAN Student in an Organized Health Care Education/Training Program; FAMILY PHYSICIAN Family Medicine; OTHER PHYSICIAN Internal Medicine Gastroenterology
PROC: 30233N1 Transfusion of Nonautologous Red Blood Cells into Peripheral Vein, Percutaneous Approach (ICD-10-PCS; 2025-03-16)
PROC: B4141ZZ Fluoroscopy of Superior Mesenteric Artery using Low Osmolar Contrast (ICD-10-PCS; 2025-03-16)
PROC: 04V53DZ Restriction of Superior Mesenteric Artery with Intraluminal Device, Percutaneous Approach (ICD-10-PCS; 2025-03-16)
DX: K57.31 Diverticulosis of large intestine without perforation or abscess with bleeding (principal); D62 Acute posthemorrhagic anemia; E11.9 Type 2 diabetes mellitus without complications; E03.9 Hypothyroidism, unspecified; K59.09 Other constipation; I10 Essential (primary) hypertension; Z60.2 Problems related to living alone; Z90.49 Acquired absence of other specified parts of digestive tract; Z88.6 Allergy status to analgesic agent; Z91.041 Radiographic dye allergy status; Z88.2 Allergy status to sulfonamides; Z88.7 Allergy status to serum and vaccine; Z91.048 Other nonmedicinal substance allergy status; Z79.890 Hormone replacement therapy; Z79.84 Long term (current) use of oral hypoglycemic drugs; Z86.0100 Personal history of colon polyps, unspecified; Z80.0 Family history of malignant neoplasm of digestive organs; Z90.722 Acquired absence of ovaries, bilateral; Z90.710 Acquired absence of both cervix and uterus
CPT/HCPCS: 36246; 37244; 51702; 74174; 75726; 76937; 80048; 80053; 82962; 83036; 83735; 84100; 85014; 85018; 85025; 85027; 85610; 85730; 86850; 86900; 86901; 86920; 87045; 87046; 87324; 87427; 87449; 93005; 96360; 96361; 99291; C1769; C1887; P9016; Q9967